=== PATIENT | female | born 1995 | race Caucasian/White ===

== ENCOUNTER → 2017-07-14 09:35 | Outpatient (CLI) | payer BC, SELFPAY ==
--- NOTE | 2017-07-14 09:38 | RAD_ITS ---
STUDY: X-RAY - ABDOMEN/PELVIS REASON FOR EXAM: Female, 22 years old. One-week history of the abdominal pain. TECHNIQUE: AP supine and upright views of the abdomen and pelvis. COMPARISON: None. FINDINGS: Normal visualized lung bases. There is an abundance of fecal material throughout the colon. There is no demonstrated free abdominal air. The visualized liver, spleen and kidneys are grossly normal in size and morphology. Normal soft tissue structures. Normal visualized osseous structures. RAD/Abd Inc Decub and/or Erect IMPRESSION: Large amount of fecal material is seen in the colon. Electronically Signed: Flako Stoner MD at 10:16 EST Tel [phone], Service support ,
== END ==
PROVIDERS: Visit Provider Nurse Practitioner Family
DX: R10.9 Unspecified abdominal pain (principal)
CPT/HCPCS: 74019